=== PATIENT | male | born 1995 | race Caucasian/White ===

== ENCOUNTER 2018-12-19 09:49 | Emergency (ER) | payer OTHER ==
[~2018-12-19] VITALS: Ht 180.3 cm; Wt 129.3 kg
[~2018-12-19 09:49] MED LIST: ADVIL200 MG PO; AMOXICILLIN500 MG PO; INTUNIV2 MG PO; MOTRIN800 MG PO
[2018-12-19 09:54] VITALS: BP 110/90
[2018-12-19] MEDS ORDERED: AUGMENTIN 875875 MG PO (10:20)
== END 2018-12-19 10:35 | disposition home or self-care (01) ==
LOC: ED 09:49
DX: J01.90 Acute sinusitis, unspecified (principal); J02.9 Acute pharyngitis, unspecified; Z91.040 Latex allergy status

== ENCOUNTER 2018-12-28 10:44 | Emergency (ER) | payer OTHER ==
[~2018-12-28] VITALS: Ht 180.3 cm; Wt 129.3 kg
[~2018-12-28 10:44] MED LIST changes: +AUGMENTIN 875875 MG PO
== END 2018-12-28 11:41 | disposition home or self-care (01) ==
LOC: ED 10:44
DX: S06.0X0A Concussion without loss of consciousness, initial encounter (principal); W00.0XXA Fall on same level due to ice and snow, initial encounter; Y93.89 Activity, other specified; Y92.69 Other specified industrial and construction area as the place of occurrence of the external cause; Y99.8 Other external cause status

== ENCOUNTER → 2024-09-12 | Outpatient (CLI) | payer OTHER | END | disposition home or self-care (01) | LOC: RAD 17:07 | PROVIDERS: ATTEND Family Medicine | DX: M79.642 Pain in left hand (principal); M25.532 Pain in left wrist ==